=== PATIENT | male | born 1980 | race Caucasian/White ===

== ENCOUNTER 2019-02-13 13:10 | Emergency (ER) | payer MEDICAID ==
--- NOTE | 2019-02-13 13:29 | EDM.PDOC ---
ED [facility] GENERAL MEDICAL PROBLEM - General Chief Complaint: Lower Extremity Injury/Pain Stated Complaint: LEFT LOWER LEG INJURY/PAIN Time Seen by Provider: 02/13/19 13:15 Source of Information: Reports: Patient History Limitations: Reports: No Limitations - History of Present Illness INITIAL COMMENTS - FREE TEXT/NARRATIVE: 38 yo male had his left tib/fib area hit by a stack of heavy boards as they slid. Has been walking on it without issue. Has bruising. Thinks he needs an X- ray. 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 Musculoskeletal: Reports: Leg Pain (mild L leg) Skin: Reports: Bruising (L leg) Neurological: Reports: No Symptoms ED EXAM, GENERAL - Physical Exam Exam: See Below Exam Limited By: No Limitations General Appearance: Alert, WD/WN, No Apparent Distress Extremities: No Pedal Edema. No: Non-Tender, Pedal Edema Neurological: Alert, Oriented, CN II-XII Intact, Normal Cognition, No Motor/ Sensory Deficits Psychiatric: Normal Affect, Normal Mood Skin Exam: Warm, Dry, Intact, No Rash, Ecchymosis (L leg, lower half of tib/fib area.), Wound/Incision (abrasion present.) Course - Vital Signs Last Recorded V/S: Last Vital Signs Temp 36.4 C 02/13/19 13:28 Pulse 62 02/13/19 13:28 Resp 16 02/13/19 13:28 BP 138/67 02/13/19 13:28 Pulse Ox 98 02/13/19 13:28 - Orders/Labs/Meds Orders: Active Orders 24 hr Category Date Time Status Tibia Fibula Lt [CR] Stat Exams 02/13/19 13:24 Taken - Radiology Interpretation Free Text/Narrative:: L Tib/fib X-ray-neg Departure - Departure Time of Disposition: 13:59 Disposition: Home, Self-Care 01 Condition: Good Clinical Impression: Contusion of leg, left Qualifiers: Encounter type: initial encounter Qualified Code(s): S80.12XA - Contusion of left lower leg, initial encounter - Discharge Information *PRESCRIPTION DRUG MONITORING PROGRAM REVIEWED*: No *COPY OF PRESCRIPTION DRUG MONITORING REPORT IN PATIENT AIXA: No Referrals: PCP,None [Primary Care Provider] - Forms: ED Department Discharge Additional Instructions: acetaminophen or ibuprofen as needed. Keep area clean with soap and water. Recheck prn. Sepsis Event Note - Focused Exam Vital Signs: Vital Signs Temp Pulse Resp BP Pulse Ox 02/13/19 13:28 36.4 C 62 16 138/67 98 02/13/19 13:23 36.4 C 62 16 138/67 98 Date Exam was Performed: 02/13/19 Time Exam was Performed: 13:58 - My Orders Last 24 Hours: My Active Orders 02/13/19 13:24 Tibia Fibula Lt [CR] Stat - Assessment/Plan Last 24 Hours: My Active Orders 02/13/19 13:24 Tibia Fibula Lt [CR] Stat
--- NOTE | 2019-02-13 14:12 | CR ---
Tibia Fibula Lt CLINICAL HISTORY: Trauma FINDINGS: Two views show no evidence of fracture or bone destruction. No soft tissue abnormality is seen. Impression: Negative
== END 2019-02-13 14:06 | disposition home or self-care (01) ==
LOC: JP.ED 13:10
DX: S80.12XA Contusion of left lower leg, initial encounter (principal); W22.8XXA Striking against or struck by other objects, initial encounter
CPT/HCPCS: 73590-26-LT; 73590-LT; 99283-25